=== PATIENT | male | born 1945 | race Caucasian/White ===

== ENCOUNTER 2023-03-19 08:29 | Outpatient (OUT) | payer MEDICARE, OTHER, SELFPAY ==
[2023-03-19 08:49] LABS: Basophils Percent Auto 0.8 % (0.2-2.0); Eosinophils Absolute Auto 0.2 10^3/uL (0.0-0.7); Eosinophils Percent Auto 4.6 % (0.9-7.0); Hematocrit 33.6 % (42.0-54.0); Hemoglobin 11.3 g/dL (14.0-18.0); Immature Granulocytes Abs Auto 0.01 10^3/uL (0.00-0.03); Immature Granulocytes Pct Auto 0.2 % (0.0-0.5); Lymphocytes Absolute Auto 1.1 10^3/uL (1.2-3.8); Lymphocytes Percent Auto 21.2 % (20.5-60.0); Mean Corpuscular HGB Conc 33.6 g/dL (29.9-35.2); Mean Corpuscular Hemoglobin 32.2 pg (25.9-34.0); Mean Corpuscular Volume 95.7 fL (80.0-94.0); Mean Platelet Volume 8.9 fL (9.5-13.5); Monocytes Absolute Auto 0.5 10^3/uL (0.3-0.8); Monocytes Percent Auto 10.3 % (1.7-12.0); Neutrophils Absolute Auto 3.2 10^3/uL (1.4-6.5); Neutrophils Percent Auto 62.9 % (43.0-75.0); Platelet Count 218 10^3/uL (150-450); Red Blood Count 3.51 10^6/uL (4.70-6.10); Red Cell Distribution Width 12.5 % (11.0-15.0); White Blood Count 5.1 10^3/uL (4.0-11.0)
--- NOTE | 2023-03-19 08:59 | CA_ITS ---
[facility] Test Date: 2023-04-10 Pat Name: DANNY HERNANDEZ Department: Room: - Gender: Male Health Information Specialist: : 1945 Requested By: [id number] Order Number: [id number] Reading MD: JEMIMA LEONARD Interpretive Statements Predominant rhythm is sinus with average rate of 59 bpm Tachycardia - max rate of 141 bpm - 25 episodes of PSVT w/ longest duration of 7 beats Bradycardia - min rate of 41 bpm, occurring during applications chemist hours of sleep Ventricular ectopy - 261 total (<1%) - 164 PVC - 42 bigeminy - 55 trigeminy Patient triggered events: none Impression: Predominant rhythm is sinus with average rate of 59 bpm Fastest rate of 141 and slowest rate of 41 bpm 164 PVC, 42 bigeminy and 55 trigeminy No blocks or pauses Electronically Signed On 04-12-2023 10:16:54 EDT by JEMIMA LEONARD
--- NOTE | 2023-03-19 08:59 | CA_ITS ---
Patient: DANNY HERNANDEZ Exam Date: 03/19/2023 : 1945 Gender:M Ordering : [facility] Admission #: [id number] Family : Order #: [id number] CLICK HERE TO VIEW EXAM ECHOCARDIOGRAM REPORT PROCEDURE: CA ECHO DOPPLER COMPLETE INDICATIONS: Syncope COMPARISON: None. DESCRIPTION: COMPLETE ECHOCARDIOGRAM Real-time transthoracic echocardiography with 2D, M-mode, spectral and color flow Doppler performed. QUALITY: Technical quality was good. LEFT VENTRICLE: Normal chamber size. Normal left ventricular wall thickness. Normal systolic function. LV EF: Normal left ventricular ejection fraction, (>55%). DIASTOLIC: Diastolic function is indeterminate. ATRIAL SEPTUM: Visually appears intact. LEFT ATRIUM: Mild dilatation. RIGHT ATRIUM: Mild dilatation. RIGHT VENTRICLE: Mildly dilated. Normal right ventricular systolic function. TRICUSPID VALVE: Normal mobility and thickness. No stenosis with trivial regurgitation. No evidence of pulmonary hypertension. RVSP 34 mmHg MITRAL VALVE: Normal mobility and thickness. No evidence of mitral valve stenosis. Mild mitral annular calcification. No mitral regurgitation. AORTIC VALVE: Normal trileaflet appearance. Mildly calcified aortic valve. Normal leaflet mobility. No evidence of aortic valve stenosis. Mild to moderate aortic regurgitation. AORTIC ROOT: Normal diameter and appearance. PULMONIC VALVE: Normal thickness and mobility. No stenosis. Trivial regurgitation. PERICARDIUM: No evidence of pericardial effusion. IVC: Collapses with inspirations. PLEURA: CONCLUSION: 1. Normal left ventricular systolic function. LVEF is 55 to 60%. 2. Mildly dilated right ventricle with normal systolic function. 3. Mild biatrial dilatation. 4. Mild to moderate aortic regurgitation. 5. Normal right-sided pressures. 6. No pericardial effusion. Adult Echocardiography Procedure Report Left Ventricle LVEDD (3.7 - 5.6 cm): 4.07 cm LVESD (2.2 - 4.0 cm): 2.44 cm LVIVS thickness (0.6 - 1.2 cm): 0.93 cm LVPW thickness (0.5 - 1.0 cm): 0.86 cm e': 0.11 m/s E - e': 7.36 LVOT Max Gradient: 3.20 mm[Hg] LVOT Area (cm2): 0.89 m/s Peak Velocity (LVOT): 0.89 m/s Mean Velocity (LVOT): 0.62 m/s LVOT Diameter 2.34 cm Left Atrium LA Volume Index (2D A2C): 37.37 ml/m2 Left Atrium Systolic Dimension: 2.48 cm Mitral Valve MV E to A Ratio: 1.20 Mitral Valve A-Wave Peak Velocity: 0.69 m/s Mitral Valve E-Wave Peak Velocity: 0.83 m/s Right Ventricle Aorta AO Root Diam: 2.61 cm Aortic Valve AoV Area (Peak Apolinar): 2.86 cm2, 2.86 cm2 AoV Area (VTI): 2.96 cm2, 2.96 cm2 Peak Velocity(Antegrade Flow): 1.34 m/s Peak Gradient(Antegrade Flow): 7.17 mm[Hg] Mean Velocity(Antegrade Flow): 0.84 m/s Mean Gradient(Antegrade Flow): 3.35 mm[Hg] Velocity Time Integral: 36.17 cm Tricuspid Valve Peak Velocity (Regurgitant Flow): 2.78 m/s Pulmonic Valve Mean Gradient: 1.55 mm[Hg] Mean Velocity: 0.58 m/s Peak Velocity: 0.85 m/s, 0.82 m/s Peak Gradient: 2.66 mm[Hg], 2.90 mm[Hg] Right Atrium Right Atrium Systolic Pressure: 51.76 ml, 51.76 ml Dictated by: Richard Olivas M.D. on 03/20/2023 at 17:27 Approved by: Richard Olivas M.D. on 03/20/2023 at 17:32
[2023-03-19 09:52] LABS: Alanine Aminotransferase <6 U/L (16-63); Albumin Level 3.7 g/dL (3.4-5.0); Alkaline Phosphatase 83 U/L (46-116); Anion Gap 12.3; Aspartate Amino Transferase 17 U/L (15-37); BUN Creatinine Ratio 23.5; Bilirubin Total 0.7 mg/dL (0.2-1.0); Calcium 9.3 mg/dL (8.5-10.1); Carbon Dioxide 27.2 mmol/L (21.0-32.0); Chloride 102 mmol/L (98-107); Chol HDL Ratio 2.8; Cholesterol 149 mg/dL (<=200); Estimated GFR (African America >60 (>=60); Estimated GFR (Non-African Ame >60 (>=60); Globulin 3.7 g/dL; Glucose 97 mg/dL (74-106); HDL Cholesterol 54 mg/dL (40-60); LDL Cholesterol Calculated 81.4 mg/dL; Potassium 4.5 mmol/L (3.5-5.1); Sodium 137 mmol/L (136-145); Thyroid Stimulating Hormone 0.586 uIU/mL (0.358-3.740); Total Protein 7.4 g/dL (6.4-8.2); Triglycerides 68 mg/dL (<=150); VLDL CHOLESTEROL 13.6 mg/dL
== END 2023-03-19 08:30 | disposition home or self-care (01) ==
LOC: LAB 08:32
PROVIDERS: PCP Nurse Practitioner Family; Visit Provider Nurse Practitioner Family
DX: I10 Essential (primary) hypertension (principal); Z12.5 Encounter for screening for malignant neoplasm of prostate; R55 Syncope and collapse; I35.1 Nonrheumatic aortic (valve) insufficiency
CPT/HCPCS: 36415; 80053; 80061; 84436; 84443; 84481; 85025; 93242; 93306; G0103

== ENCOUNTER 2025-03-31 08:54 | Outpatient (OUT) | payer MEDICARE, OTHER, SELFPAY ==
--- OUTSIDE RECORDS SUMMARY | 2025-03-31 08:59 | XMS_ITS | Encounter Summary ---
Author Organization [facility] Address [facility]-[id number] [address] [place] [address] Care Team Providers Care General Accounting Clerk Name Role Phone Unavailable Primary Care Provider Unavailabl e Reason for Visit * Reason Comments Med Refill Encounter Details Date Type Department Care Team (Late st Contact Info) Description 04/25/2023 Refill [facility] [address] [address] [phone] Dianna Boucher, WOOD GRAINER-SED MIDDLE SCHOOL TEACHER [address] [facility] [address], [place] [address] Mixed hyperlipidemia; Essential hypertension; Parkinson's disease ([facility]) Social History Tobacco Use Types Packs/Day Years Used Date Smoking Tobacco: Never Smokeless Tobacco: Never Alcohol Use Standard Drinks/Week Comments Yes 0 (1 standard drink = 0.6 oz pur e alcohol) social PHQ-2 Answer Date Recorded Total Score 5 07/16/2021 Childcare Answer Date Recorded Childcare Unknown 03/03/2019 Employment Answer Date Recorded Employment Unknown 03/03/2019 Purpose - Life Answer Date Recorded Purpose and direction in life Unknown Sex and Gender Information Value Date Recorded Sex Assigned at Not on file Legal Sex Male 11:21 AM EDT Gender Identity Not on file Sexual Orientation Not on file documented as of this encounter Plan of Treatment Not on file documented as of this encounter Visit Diagnoses Diagnosis Mixed hyperlipidemia Essential hypertension Unspecified essential hypertension Parkinson's disease ([facility]) documented in this encounter Additional Health Concerns Assessment Noted Time PHQ-9 Depression Total Score: 5 07/16/ 21 10:41 AM EDT documented as of this encounter
--- OUTSIDE RECORDS SUMMARY | 2025-03-31 08:59 | XMS_ITS | Encounter Summary ---
Author Organization [facility] tem Address [id number] [address] [place] [address] Care Team Providers Care Candle Extrusion Machine Operator Name Role Phone Dianna Boucher Primary Care Provi angela Reason for Visit * Reason Onset Date Comments Med Refill 03/07/2021 Encounter Details Date Type Department Care Team (Late st Contact Info) Description 03/07/2021 Refill [facility] [address] [place] [address] [place] [address] Miguel Lopez CMA Mixed hyperlipidemia; Essential hypertension; Parkinson's disease ([facility]) Social History Tobacco Use Types Packs/Day Years Used Date Smoking Tobacco: Never Smokeless Tobacco: Never Alcohol Use Standard Drinks/Week Comments Yes 0 (1 standard drink = 0.6 oz pur e alcohol) social PHQ-2 Answer Date Recorded Total Score 0 07/13/2020 Childcare Answer Date Recorded Childcare Unknown 03/03/2019 Employment Answer Date Recorded Employment Unknown 03/03/2019 Purpose - Life Answer Date Recorded Purpose and direction in life Unknown Sex and Gender Information Value Date Recorded Sex Assigned at Not on file Legal Sex Male 11:21 AM EDT Gender Identity Not on file Sexual Orientation Not on file documented as of this encounter Miscellaneous Notes * Telephone Encounter - HOANG Hernandez - 03/07/2021 2:22 PM EDT This was filled multiple times last week documented in this encounter Plan of Treatment Not on file documented as of this encounter Visit Diagnoses Diagnosis Mixed hyperlipidemia Essential hypertension Unspecified essential hypertension Parkinson's disease (CMS-HCC) documented in this encounter Additional Health Concerns Assessment Noted Time PHQ-9 Depression Total Score: 0 07/13/20 20 10:00 AM EDT documented as of this encounter Care Teams Candle Extrusion Machine Operator Relationship Specialty Start Date End Date Dianna Boucher APRN-CNP [address], [place] [address] PCP - General Family Medicine 12/17/17 04/14/22 documented as of this encounter
--- OUTSIDE RECORDS SUMMARY | 2025-03-31 08:59 | XMS_ITS | Encounter Summary ---
Author Organization [facility] Address [facility]-[id number] [address] [place] [address] Care Team Providers Care Bi Solutions Architect Name Role Phone Dianna Boucher Primary Care Provi angela Reason for Visit * Reason Onset Date Comments Med Refill 03/01/2021 Encounter Details Date Type Department Care Team (Late st Contact Info) Description 03/01/2021 Refill [facility] [address] [place] [address] [place] [address] Enma Frederick CMA Mixed hyperlipidemia; Essential hypertension; Parkinson's disease ([facility]) Social History Tobacco Use Types Packs/Day [...] * Telephone Encounter - HOANG Hernandez - 03/01/2021 10:34 AM EDT Is not appearing on his med list ? * Telephone Encounter - Enma Frederick CMA - 03/01/2021 10:34 AM EDT Julito states he has 8 pills left, when they called the pharmacy for a refill, they said to call pcp,was this medication to be stopped in the past? * Telephone Encounter - HOANG Hernandez - 03/01/2021 10:34 AM EDT Can you check with pt or pharmacy and see if he is still taking this, probably pharmacy please * Telephone Encounter - Miguel Prater CMA - 03/01/2021 10:34 AM EDT Spoke with Danika with [facility] and she said that the medication was discontinued, but theycan't tell by who. * Telephone Encounter - HOANG Hernandez - 03/01/2021 10:34 AM EDT Was dc'd by another provider * Telephone Encounter - Miguel Prater CMA - 03/01/2021 10:34 AM EDT I called sada to inform him, his son answered and said that no one has taken him off of the amlodipine. Would you like me to repend it to you? * Telephone Encounter - HOANG Hernandez - 03/01/2021 10:34 AM EDT Yes please documented in this encounter Plan of Treatment Not on file documented as of this encounter Visit Diagnoses Diagnosis Mixed hyperlipidemia Essential hypertension Unspecified essential hypertension Parkinson's disease (CMS-HCC) documented in this encounter Additional Health Concerns Assessment Noted Time PHQ-9 Depression Total Score: 0 07/13/20 20 10:00 AM EDT documented as of this encounter Care Teams Bi Solutions Architect Relationship Specialty Start Date End Date Dianna Boucher APRN-CNP [address], [place] [address] PCP - General Family Medicine 12/17/17 04/14/22 documented as of this encounter
--- OUTSIDE RECORDS SUMMARY | 2025-03-31 08:59 | XMS_ITS | Clinical Summary ---
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 (CMS-HCC),Restl ess leg syndrome 1 tab tid 90 tablet 1 10/01/2021 Active carbidopa-levod opa (SINEMET CR) 25-100 mg per CR tabletIndicatio ns:Parkinson's disease (CMS-HCC) TAKE 2 TABLETS FIVE TIMES A DAY 900 tablet 3 04/15/2022 Active lisinopriL (PRINIVIL,ZESTR IL) 20 mg tabletIndicatio ns:Mixed hyperlipidemia, Essential hypertension,Pa rkinson's disease ([facility]-H[facility]) TAKE 1 TABLET DAILY 90 tablet 3 04/30/2022 Active amLODIPine (NORVASC) 10 mg tabletIndicatio ns:Mixed hyperlipidemia, Essential hypertension,Pa rkinson's disease ([facility]) TAKE 1 TABLET NIGHTLY 90 tablet 3 02/21/2025 Active Active Problems Patient Care Coordination No te Formatting of this note migh t be different from the original. 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 Unsteady gait 05/26/2018 Bilateral impacted cerumen 04/01/2018 Low vitamin B12 level 04/01/2018 Mixed hyperlipidemia 12/17/2017 Essential hypertension 12/17/2017 Parkinson's disease 12/17/2017 Encounters Date Type Department Care Team Description 02/21/2025 Refill [facility] [address] [place] [address] [place] [address] Lakesha Johnson MD Mixed hyperlipidemia; Essential hypertension; Parkinson's disease ([facility]) from Last 3 Months Immunizations Immunization Administration Dates Next Due COVID-19, mRNA, LNP-S, PF, 100mcg/0.5mL Dose 02/03/2021,01/06/2021 Influenza, Injectable, quadr ivalent (PF) 10/01/2018(Deferred: Patient decision) Pneumococcal Conjugate 13-Valent 10/26/2018 Family History Medical History Relation Name Comments Skin cancer Daughter Prostate cancer Father Hypertension Mother Relation Name Status Comments Daughter Alive Father Mother Social History Tobacco Use Types Packs/Day Years Used Date Smoking Tobacco: Never Smokeless Tobacco: Never Tobacco Cessation:Counseling Given: Yes Alcohol Use Standard Drinks/Week Comments Yes 0 [...] on file Sexual Orientation Not on file Last Filed Vital Signs Vital Sign Reading Time Taken Comments Blood Pressure 120/70 07/16/2021 10:43 AM EDT Pulse 61 07/16/2021 10:43 AM EDT Temperature 36.4 C (97.5 F) 07/16/2021 10:43 AM EDT Respiratory Rate 16 09/12/2020 10:48 AM EST Oxygen Saturation 97% 07/16/2021 10:43 AM EDT Inhaled Oxygen Concentration - - Weight 61.7 kg (136 lb) 07/16/2021 10:43 AM EDT Height 165.1 cm (5' 5 ) 06/06/2021 9:04 AM EDT Body Mass Index 22.63 06/06/2021 9:04 AM EDT Plan of Treatment Health Maintenance Due Date Last Done Comments Depression Screening 1957 Tobacco Screening 1957 DTaP,Tdap and Td Vaccines (1 - Tdap) 1965 Zoster (Shingles) Vaccine (1 of 2) 1996 Fall Risk Screening 2011 COVID-19 Vaccine (3 - season) 2024, 01/06/2021 Influenza Vaccine 05/23/2025 Medical Devices Not on file Insurance MEDICAL TI[employer] MEDICARE
--- OUTSIDE RECORDS SUMMARY | 2025-03-31 08:59 | XMS_ITS | Encounter Summary ---
Author Organization [facility] Address [facility]-[id number] [address] [place] [address] Care Team Providers Care Rn Clinical Research Name Role Phone Dianna Boucher FOUNDRY FINISHER-WIRE PREPARATION MACHINE TENDER Primary Care Provi angela Reason for Visit * Reason Comments Med Refill Encounter Details Date Type Department Care Team (Late st Contact Info) Description 02/07/2020 Refill [facility] [address] [place] [address] [place] [phone] Dianna Boucher, [facility] [address] [place] [address] B, [place] [address] Mixed hyperlipidemia; Essential hypertension; Parkinson's disease ([facility]) Social History Tobacco Use Types Packs/Day Years Used Date Smoking Tobacco: Never Smokeless Tobacco: Never Alcohol Use Standard Drinks/Week Comments Yes 0 (1 standard drink = 0.6 oz pur e alcohol) PHQ-2 Answer Date Recorded PHQ-2 Score 0 04/14/2019 Childcare Answer Date Recorded Childcare Unknown 03/03/2019 Employment Answer Date Recorded Employment Unknown 03/03/2019 Sex and Gender Information Value Date Recorded Sex Assigned at Not on file Legal Sex Male 11:21 AM EDT Gender Identity Not on file Sexual Orientation Not on file documented as of this encounter Plan of Treatment Not on file documented as of this encounter Visit Diagnoses Diagnosis Mixed hyperlipidemia Essential hypertension Unspecified essential hypertension Parkinson's disease ([facility]) documented in this encounter Additional Health Concerns Assessment Noted Time PHQ-9 Depression Total Score: 0 10/25/19 20 10:00 AM EST documented as of this encounter Care Teams Rn Clinical Research Relationship Specialty Start Date End Date Dianna Boucher, CORDELL-WIRE PREPARATION MACHINE TENDER [address], [place] [address] PCP - General Family Medicine 12/17/17 04/14/22 documented as of this encounter
--- OUTSIDE RECORDS SUMMARY | 2025-03-31 08:59 | XMS_ITS | Encounter Summary ---
Author Organization [facility] [employer] [facility] Address [facility]-[id number] [address] [place] [address] Care Team Providers Care Salvage Determiner Name Role Phone Dianna Boucher SUPERVISOR BLOOMING MILL-WELFARE DIRECTOR Primary Care Provi angela Reason for Visit * Reason Comments Med Refill Encounter Details Date Type Department Care Team (Late st Contact Info) Description 02/03/2021 Refill [facility] [address] [place] [address] [place] [address] Dianna Boucher, SUPERVISOR BLOOMING [facility] [address] [place] [address] B, [place] [address] Mixed hyperlipidemia; Essential hypertension; Parkinson's disease ([facility]) Social History Tobacco Use Types Packs/Day [...] Essential hypertension Unspecified essential hypertension Parkinson's disease ([facility]) documented in this encounter Additional Health Concerns Assessment Noted Time PHQ-9 Depression Total Score: 0 07/13/20 20 10:00 AM EDT documented as of this encounter Care Teams Salvage Determiner Relationship Specialty Start Date End Date Dianna Boucher APRN-WELFARE DIRECTOR [address], [place] [address] PCP - General Family Medicine 12/17/17 04/14/22 documented as of this encounter
--- OUTSIDE RECORDS SUMMARY | 2025-03-31 08:59 | XMS_ITS | Clinical Summary ---
Author Organization [facility] Address [address] [place] [address] Care Team Providers Care Rhythmic Gymnastics Coach Name Role Phone Beulah Hilario SULEIMAN Primary Care Provider [phone] Allergies No known active allergies Medications carbidopa-levod opa (Sinemet CR) 25-100 mg ER tablet TAKE 3 TABLETS BY MOUTH FOUR TIMES DAILY FOR 14 DAYS 05/01/2023 Active mirtazapine (Remeron) 15 mg tablet 04/30/2023 Active amLODIPine (Norvasc) 10 mg tablet Take 1 tablet by mouth at bedtime. 03/04/2023 Active lisinopril 20 mg tablet Take 1 tablet by mouth in the morning. 04/30/2022 Active pramipexole (Mirapex) 0.5 mg tablet Take 0.5 mg by mouth in the morning, afternoon, and at bedtime. 04/18/2023 Active tiZANidine (Zanaflex) 4 mg tablet TAKE 1 TABLET BY MOUTH FIVE TIMES DAILY NEEDED 04/18/2023 Active Active Problems Problem Noted Date Diagnosed Date Paroxysmal supraventricular tachycardia 05/29/20 23 Assessment & Plan (05/29/2023 3:43 PM EDT): -psvt seen on monitor -likely unrelated to syncope -will do 30d event monitor -LA/RA mildly dilated on echo -baseline HR 60, will hold off on medication as he is asymptomatic Skin lesion of right arm 09/12/2020 023 REM sleep behavior disorder 07/06/201904/23 Weight loss 04/14/2019 05/19/2023 Medicare annual wellness visit, subsequent 08/2705/19/2023 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 05/19/2023 Restless leg syndrome 05/26/2018 05/19/2023 Unsteady gait 05/26/2018 05/19/2023 Bilateral impacted cerumen 04/01/201805/19 Low vitamin B12 level 04/01/2018 05/19/2023 Essential hypertension 12/17/2017 Assessment & Plan (05/29/2023 3:42 PM EDT): -stable, ct medications Mixed hyperlipidemia 12/17/2017 05/19/2023 Parkinson's disease 12/17/2017 05/19/2023 Assessment & Plan (05/29/2023 3:42 PM EDT): -could be contributing to syncopal episodes -follows neurology Family History Medical History Relation Name Comments Hypertension Brother Hypertension Father Hypertension Mother Hypertension Sister Relation Name Status Comments Brother Father Mother Sister Social History Tobacco Use Types Packs/Day Years Used Date Smoking Tobacco: Never Smokeless Tobacco: Never Alcohol Use Standard Drinks/Week Comments Yes 14 (1 standard drink = 0.6 oz pu re alcohol) 2 beers daily [place] Safety [facility] Environment Answer Date Rec orded Fear of Current or Ex-Partner Not on file Emotionally Abused Not on file 11/14/2023 Physically Abused Not on file 11/14/2023 Sexually Abused Not on file 11/14/2023 Physically or Sexually Abused Not on file Sex and Gender Information Value Date Recorded Sex Assigned at Not on file Legal Sex Male 1:29 PM EDT Gender Identity Not on file Sexual Orientation Not on file Last Filed Vital Signs Vital Sign Reading Time Taken Comments Blood Pressure 108/68 07/15/2023 11:53 AM EDT Pulse 62 07/15/2023 11:53 AM EDT Temperature - - Respiratory Rate - - Oxygen Saturation 97% 07/15/2023 11:53 AM EDT Inhaled Oxygen Concentration - - Weight 58.5 kg (129 lb) 07/15/2023 11:53 AM EDT Height 167.6 cm (5' 6 ) 07/15/2023 11:53 AM EDT Body Mass Index 20.82 07/15/2023 11:53 AM EDT Plan of Treatment Health Maintenance Due Date Last Done Comments Medicare Annual Wellness (AWV) 1945 Depression Screening 1957 Adult Tetanus 1968 Zoster Vaccines (1 of 2) 1996 Fall Risk Screening 2011 Pneumococcal Vaccine: 50+ Ye ars (2 of 2 - PCV20 or PCV21) 10/26/2019 10/26/2018 COVID-19 Vaccine (1 - 2023-2 5 season) 2024 Influenza Vaccine (#1) 2025 HIB Vaccines Aged Out No longer eligi ble based on patient's age to complete this topic HPV Vaccines Aged Out No longer eligi ble based on patient's age to complete this topic IPV Vaccines Aged Out No longer eligi ble based on patient's age to complete this topic Meningococcal B Vaccine Aged Out No l onger eligible based on patient's age to complete this topic Meningococcal Vaccine Aged Out No ross luís eligible based on patient's age to complete this topic Rotavirus Vaccines Aged Out No longer eligible based on patient's age to complete this topic Insurance [employer] Care Teams Rhythmic Gymnastics Coach Relationship Specialty Start Date End Date Beulah Hilario CNP [facility], [facility] [address] [place] [phone] PCP - General Family Medicine 05/16/23
--- OUTSIDE RECORDS SUMMARY | 2025-03-31 08:59 | XMS_ITS | Encounter Summary ---
Author Organization [facility] [employer] [facility] Address [facility]-[id number] [address] [place] [address] Care Team Providers Care Valve Fitter Name Role Phone Dianna Boucher SALES PROCESS MANAGER-PERSONAL COMPANION Primary Care Provi angela Reason for Visit * Reason Comments Med Refill Encounter Details Date Type Department Care Team (Late st Contact Info) Description 07/08/2019 Refill [facility] [address] [place] [address] [place] [phone] Dianna Boucher, [facility] [address] [place] [address] B, [place] [address] Mixed hyperlipidemia; Essential hypertension; Parkinson's disease ([facility]) Social History Tobacco Use Types Packs/Day Years [...] Essential hypertension Unspecified essential hypertension Parkinson's disease ([facility]) documented in this encounter Additional Health Concerns Assessment Noted Time PHQ-9 Depression Total Score: 0 04/14/20 19 11:00 AM EDT documented as of this encounter Care Teams Valve Fitter Relationship Specialty Start Date End Date Dianna Boucher, CORDELL-PERSONAL COMPANION [address], [place] [address] PCP - General Family Medicine 12/17/17 04/14/22 documented as of this encounter
--- OUTSIDE RECORDS SUMMARY | 2025-03-31 08:59 | XMS_ITS | Clinical Summary ---
Author Organization [facility] Address [address] [place] [address] Care Team Providers Care Reset Merchandiser Name Role Phone Beulah Hilario MD Unavailable [phone] Bijal Haley DO Unavailable [phone] Yoselyn Wiley NP Unavailable [phone] Allergies No known active allergies Medications tiZANidine (Zanaflex) 4 MG tablet Take 4 mg by mouth 5 (five) times a day Active amLODIPine (Norvasc) 10 MG tablet Take 10 mg by mouth Daily Active lisinopril 20 MG tablet Take 20 mg by mouth Daily Active mirtazapine (Remeron) 15 MG tabletIndications:T remor TAKE 1 TABLET BY MOUTH AT BEDTIME 30 tablet 1 5 Active carbidopa-levodopa CR (Sinemet CR) 25-100 MG ER tabletIndications:P arkinson's disease, unspecified whether dyskinesia present, unspecified whether manifestations fluctuate (HCC) TAKE 3 TABLETS BY MOUTH FOUR TIMES DAILY 360 tablet 1 5 Active pramipexole (Mirapex) 0.5 MG tabletIndications:T remor TAKE 1 TABLET BY MOUTH THREE TIMES DAILY 90 tablet 1 5 Active Active Problems Problem Noted Date Diagnosed Date Debility 04/29/2024 Neck pain 04/29/2024 Weakness 04/29/2024 Tremor 04/29/2024 Dystonia 03/24/2024 Parkinson disease 03/24/2024 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 Encounters Date Type Department Care Team Description 02/03/2025 Refill [facility] [address] [phone] Bijal Haley Parkinson's disease, unspecified whether dyskinesia present, unspecified whether manifestations fluctuate (HCC); Tremor 01/07/2025 Refill [facility] [address] [phone] Bijal Haley DO Tremor 01/04/2025 Refill [facility]ALLUSKY [address] [address] Bijal Haley DO Tremor from Last 3 Months Immunizations Immunization Administration Dates Next Due Pneumococcal Conjugate PCV 13 02/07/2022 Family History Medical History Relation Name Comments Cancer Father Hypertension Father Hypertension Mother Migraines Paternal Grandfather Hypertension Sibling Relation Name Status Comments Father Mother Paternal Grandfather Sibling Social History Tobacco Use Types Packs/Day Years Used Date Smoking Tobacco: Never Tobacco Cessation:Counseling Given: Not Answered Alcohol Use Standard Drinks/Week Comments Yes 4 (1 standard drink = 0.6 oz pur e alcohol) caffeine: 1-2 cups per day AUDIT-C Answer Date Recorded Q1: How often do you have a drink containing alcohol? 4 or more times a week 03/24/2024 Q2: How many drinks containi ng alcohol do you have on a typical day when you are drinking? 3 or 4 Q3: How often do you have si x or more drinks on one occasion? Monthly 03/24/2024 Sex and Gender Information Value Date Recorded Sex Assigned at Not on file Legal Sex Male 4:21 PM EDT Gender Identity Not on file Sexual Orientation Not on file Last Filed Vital Signs Vital Sign Reading Time Taken Comments Blood Pressure 112/66 10/05/2024 8:25 AM EST Pulse 78 10/05/2024 8:25 AM EST Temperature - - Respiratory Rate 16 04/29/2024 10:07 AM EDT Oxygen Saturation 95% 10/05/2024 8:25 AM EST Inhaled Oxygen Concentration - - Weight 62.3 kg (137 lb 6.4 oz) 10/05/2024 8:25 A M EST Height 167.6 cm (5' 6 ) 10/05/2024 8:25 AM EST Body Mass Index 22.18 10/05/2024 8:25 AM EST Plan of Treatment Health Maintenance Due Date Last Done Comments Pneumococcal Vaccine: 65+ Ye ars (2 of 2 - PPSV23) 02/07/2023 02/07/2022, 10/26/2018 Influenza Vaccine (#1) 2025 Insurance [employer]ICARE [employer] Care Teams Reset Merchandiser Relationship Specialty Start Date End Date Beulah Hilario MD [address] [place] [address] Referring Physician Family Medicine 04/29/24 Bijal Haley DO [address] [id number] Referring Physician Neurology 10/05/24 Yoselyn Wiley NP [address] [id number] Nurse Practitioner Neurology 10/05/24
--- OUTSIDE RECORDS SUMMARY | 2025-03-31 08:59 | XMS_ITS | Encounter Summary ---
Author Organization [facility] Sys tem Address [place]-[id number] [address] [place] [address] Care Team Providers Care Pottery Striper Name Role Phone Dianna Boucher APRN-MECHANICAL SYSTEMS DESIGN ENGINEER Primary Care Provi angela Encounter Details Date Type Department Care Team (Late st Contact Info) Description [facility] [address] [place] [phone] Jane Virgen Social History Tobacco Use Types Packs/Day Years [...] documented as of this encounter Visit Diagnoses Not on filedocumented in this encounter Additional Health Concerns Assessment Noted Time PHQ-9 Depression Total Score: 0 07/13/20 20 10:00 AM EDT documented as of this encounter Care Teams Pottery Striper Relationship Specialty Start Date End Date Dianna Boucher, HOANG [address], [place] [address] PCP - General Family Medicine 12/17/17 04/14/22 documented as of this encounter
--- OUTSIDE RECORDS SUMMARY | 2025-03-31 08:59 | XMS_ITS | Encounter Summary ---
Author Organization [facility] [employer] [facility] tem Address [facility]-[id number] [address] [place] [address] Care Team Providers Care Paper And Prints Restorer Name Role Phone Dianna Boucher CORRECTIONAL MAINTENANCE TECHNICIAN-SUPPORT ASSISTANT Primary Care Provi angela Encounter Details Date Type Department Care Team (Late st Contact Info) Description 08/28/2020 [facility] [address] [place] [phone] Debra Cooper Social History Tobacco Use Types Packs/Day Years Used Date Smoking Tobacco: Never Smokeless Tobacco: Never Alcohol Use Standard Drinks/Week Comments Yes 0 (1 standard drink = 0.6 oz pur e alcohol) PHQ-2 Answer Date Recorded Total Score 0 07/13/2020 Childcare Answer Date Recorded Childcare Unknown 03/03/2019 Employment Answer Date Recorded Employment Unknown 03/03/2019 Sex and Gender Information Value Date Recorded Sex Assigned at Not on file Legal Sex Male 11:21 AM EDT Gender Identity Not on file Sexual Orientation Not on file COVID-19 Exposure Response Date Recorded In the last month, have you been in contact with someone who was confirmed or suspected to have Coronavirus / COVID-19? No / Unsure 08/30/2020 11:20 AM EST documented as of this encounter Miscellaneous Notes * Telephone Encounter - Debra Cooper - 08/28/2020 2:45 PM EST Julito(son) left a voicemail stating he needs to speak to the patients case work regarding FMLA documentation. Please advise Contact- Julito(Son)-[phone] Debra Cooper 08/28/20 1446 * Telephone Encounter - Debra Cooper - 08/28/2020 2:45 PM EST Patients geetha Vila called again requesting a call back with questions regarding FMLA. Please advise Contact- [phone] Debra Cooper 08/29/20 1548 * Telephone Encounter - Meghan Jacobsen RN - 08/28/2020 2:45 PM EST Closing this encounter as there is a second encounter regarding the same thing. Meghan Jacobsen RN 08/30/20 1034 documented in this encounter Plan of Treatment Not on file documented as of this encounter Visit Diagnoses Not on filedocumented in this encounter Additional Health Concerns Assessment Noted Time PHQ-9 Depression Total Score: 0 07/13/20 20 10:00 AM EDT documented as of this encounter Care Teams Paper And Prints Restorer Relationship Specialty Start Date End Date Dianna Boucher APRN-SULEIMAN [address], [place] [address] PCP - General Family Medicine 12/17/17 04/14/22 documented as of this encounter
--- OUTSIDE RECORDS SUMMARY | 2025-03-31 08:59 | XMS_ITS | Encounter Summary ---
Author Organization [facility] [employer] Sys tem Address [facility]-[id number] [address] [place] [address] Care Team Providers Care Stable Hand Name Role Phone Dianna Boucher ELECTRICAL EXPERIMENTAL MECHANIC-GRINDING WHEEL OPERATOR Primary Care Provi angela Reason for Visit * Reason Comments Med Refill Encounter Details Date Type Department Care Team (Late st Contact Info) Description 09/02/2019 Refill [facility] [address] [place] [address] [place] [phone] Dianna Boucher, ELECTRICAL EXPERIMENTAL ME[facility] [address] [place] [address] B, [place] [address] Social History Tobacco Use Types Packs/Day Years [...] documented as of this encounter Care Teams Stable Hand Relationship Specialty Start Date End Date Dianna Boucher, ELECTRICAL EXPERIMENTAL MECHANIC-GRINDING WHEEL OPERATOR [address], [place] [address] PCP - General Family Medicine 12/17/17 04/14/22 documented as of this encounter
--- OUTSIDE RECORDS SUMMARY | 2025-03-31 08:59 | XMS_ITS | Encounter Summary ---
Author Organization [facility] [employer] [facility] tem Address [facility]-[id number] [address] [place] [address] Care Team Providers Care Field Ironworker Name Role Phone SanderDianna mendoza PRESCHOOL TEACHER-FERTILIZER MIXER Primary Care Provi angela Encounter Details Date Type Department Care Team (Late st Contact Info) Description 10/01/2021 [facility] [address] [place] [address] [place] [address] Niki Zavala CMA Social History Tobacco Use Types Packs/Day Years [...] encounter Miscellaneous Notes * Telephone Encounter - Niki Zavala CMA - 10/01/2021 11:02 AM EST ZANAFLEX (TIZANIDINEHCL) 4MG 3X DAILY BUT THEY TAKING AN ADDITIONAL 1/2 A PILL BEFORE BED PRN. NEEDS REFILLED NOT FINDING IT ON THE CURRENT MED LIST. RX IN 12-22-17 PLEASE ADVISE. documented in this encounter Plan of Treatment Not on file documented as of this encounter Visit Diagnoses Not on filedocumented in this encounter Additional Health Concerns Assessment Noted Time PHQ-9 Depression Total Score: 5 07/16/20 21 10:41 AM EDT documented as of this encounter Care Teams Field Ironworker Relationship Specialty Start Date End Date Dianna Boucher, PRESCHOOL TEACHER-FERTILIZER MIXER [address], [place] [address] PCP - General Family Medicine 12/17/17 04/14/22 documented as of this encounter
--- OUTSIDE RECORDS SUMMARY | 2025-03-31 08:59 | XMS_ITS | Encounter Summary ---
Author Organization [facility] [employer] [facility] Address [id number] [address] [place] [address] Care Team Providers Care Receptionist Name Role Phone Dianna Boucher SAFETY PIN ASSEMBLING MACHINE OPERATOR-PLANNER SCHEDULER Primary Care Provi angela Reason for Visit * Reason Onset Date Comments Med Refill 12/28/2018 Encounter Details Date Type Department Care Team (Late st Contact Info) Description 12/28/2018 Refill [facility] [address] [place] [phone] Mars Henson CMA Mixed hyperlipidemia; Essential hypertension; Parkinson's disease (CMS-HCC) Social History Tobacco Use Types Packs/Day Years Used Date Smoking Tobacco: Never Smokeless Tobacco: Never Alcohol Use Standard Drinks/Week Comments Yes 0 (1 standard drink = 0.6 oz pur e alcohol) PHQ-2 Answer Date Recorded PHQ-2 Score 2 10/26/2018 Childcare Answer Date Recorded Childcare Unknown 12/15/2018 Employment Answer Date Recorded Employment Unknown 12/15/2018 Sex and Gender Information Value Date Recorded [...] Assessment Noted Time PHQ-9 Depression Total Score: 2 10/26/19 19 11:00 AM EST documented as of this encounter Care Teams Receptionist Relationship Specialty Start Date End Date Dianna Boucher, SAFETY PIN ASSEMBLING MACHINE OPERATOR-PLANNER SCHEDULER [address], [place] [address] PCP - General Family Medicine 12/17/17 04/14/22 documented as of this encounter
--- OUTSIDE RECORDS SUMMARY | 2025-03-31 08:59 | XMS_ITS | Encounter Summary ---
Author Organization [facility] [employer] [facility] Address [facility][id number] [address] [place] [address] Care Team Providers Care Financial Dealers Name Role Phone Dianna Boucher CORE MAN-TEACHER SPECIALIST Primary Care Provi angela Reason for Visit * Reason Onset Date Comments Med Refill 10/02/2021 Encounter Details Date Type Department Care Team (Late st Contact Info) Description 10/02/2021 Refill [facility] [address] [place] [address] [place] [address] Madina Fisher CMA Social History Tobacco Use Types Packs/Day [...] documented as of this encounter Care Teams Financial Dealers Relationship Specialty Start Date End Date Dianna Boucher, CORE MAN-TEACHER SPECIALIST [address], [place] [address] PCP - General Family Medicine 12/17/17 04/14/22 documented as of this encounter
--- OUTSIDE RECORDS SUMMARY | 2025-03-31 08:59 | XMS_ITS | Encounter Summary ---
Author Organization [facility] [employer] Sys tem Address [facility]-[id number] [address] [place] [address] Care Team Providers Care Senior Advisor Name Role Phone Dianna Boucher FINANCIAL ANALYSIS ADVISOR-FRAUD MANAGER Primary Care Provi angela Reason for Visit * Reason Comments Med Refill Encounter Details Date Type Department Care Team (Late st Contact Info) Description 08/01/2020 Refill [facility] [address] [place] [address] [place] [phone] Dianna Boucher, [facility] [address] [place] [address] B, [place] [address] Social History Tobacco Use Types [...] have Coronavirus / COVID-19? No / Unsure 07/13/2020 10:18 AM EDT documented as of this encounter Miscellaneous Notes * Telephone Encounter - HOANG Hernandez - 08/01/2020 1:28 AM EST See if he is still taking this, states was dc by dr gates * Telephone Encounter - Delmar Giraldo CMA - 08/01/2020 1:28 AM EST Left vm, await call back * Telephone Encounter - Delmar Giraldo CMA - 08/01/2020 1:28 AM EST Not taking documented in this encounter Plan of Treatment Not on file documented as of this encounter Visit Diagnoses Not on filedocumented in this encounter Additional Health Concerns Assessment Noted Time PHQ-9 Depression Total Score: 0 07/13/20 20 10:00 AM EDT documented as of this encounter Care Teams Senior Advisor Relationship Specialty Start Date End Date Dianna Boucher APRN-CNP [address], [place] [address] PCP - General Family Medicine 12/17/17 04/14/22 documented as of this encounter
--- OUTSIDE RECORDS SUMMARY | 2025-03-31 08:59 | XMS_ITS | Encounter Summary ---
Author Organization [facility] [employer] Sys tem Address [facility][id number] [address] [place] [address] Care Team Providers Care Acreage Reporter Name Role Phone Dianna Boucher PUMP AND BLOWER OPERATOR-TIEDOWN OPERATOR Primary Care Provi angela Reason for Visit * Reason Comments Med Refill Encounter Details Date Type Department Care Team (Late st Contact Info) Description 02/03/2020 Refill [facility] [address] [place] [address] [place] [phone] Dianna Boucher, PUMP AND BLOWER [facility] [address] [place] [address] B, [place] [address] Social History Tobacco Use Types [...] have Coronavirus / COVID-19? No / Unsure 01/05/2020 3:00 PM EDT documented as of this encounter Plan of Treatment Not on file documented as of this encounter Visit Diagnoses Not on filedocumented in this encounter Additional Health Concerns Assessment Noted Time PHQ-9 Depression Total Score: 0 10/25/19 20 10:00 AM EST documented as of this encounter Care Teams Acreage Reporter Relationship Specialty Start Date End Date Dianna Boucher APRN-SULEIMAN [address], [place] [address] PCP - General Family Medicine 12/17/17 04/14/22 documented as of this encounter
[2025-03-31 09:58] LABS: Hematocrit 33.0 % (42.0-54.0); Hemoglobin 11.2 g/dL (14.0-18.0); Immature Granulocytes Abs Auto 0.02 10^3/uL (0.00-0.03); Immature Granulocytes Pct Auto 0.3 % (0.0-0.5); Lymphocytes Absolute Auto 0.8 10^3/uL (1.2-3.8); Mean Corpuscular HGB Conc 33.9 g/dL (29.9-35.2); Mean Corpuscular Hemoglobin 31.7 pg (25.9-34.0); Mean Corpuscular Volume 93.5 fL (80.0-94.0); Platelet Count 230 10^3/uL (150-450); Red Blood Count 3.53 10^6/uL (4.70-6.10); White Blood Count 5.8 10^3/uL (4.0-11.0)
[2025-03-31 10:28] LABS: Alanine Aminotransferase <6 U/L (16-63); Albumin Globulin Ratio 1.1; Albumin Level 3.6 g/dL (3.4-5.0); Alkaline Phosphatase 76 U/L (46-116); Anion Gap 14.5; Aspartate Amino Transferase 16 U/L (15-37); Blood Urea Nitrogen 22.0 mg/dL (7.0-18.0); Calcium 9.0 mg/dL (8.5-10.1); Carbon Dioxide 25.9 mmol/L (21.0-32.0); Chloride 103 mmol/L (98-107); Cholesterol 126 mg/dL (<=200); Estimated GFR (African America >60 (>=60 mL/min/1.73m^2); Estimated GFR (Non-African Ame >60 (>=60 mL/min/1.73m^2); Free T3 2.80 pg/mL (2.18-3.98); Globulin 3.4 g/dL; Glucose 95 mg/dL (74-106); HDL Cholesterol 56 mg/dL (40-60); Potassium 4.4 mmol/L (3.5-5.1); Sodium 139 mmol/L (136-145); Thyroid Stimulating Hormone 0.455 uIU/mL (0.358-3.740); Total Protein 7.0 g/dL (6.4-8.2); Triglycerides 48 mg/dL (<=150); Uric Acid 6.3 mg/dL (3.5-7.2); VLDL CHOLESTEROL 9.6 mg/dL
== END 2025-03-31 08:55 | disposition home or self-care (01) ==
LOC: LAB 08:57
PROVIDERS: PCP Nurse Practitioner Family; Visit Provider Nurse Practitioner Family
DX: E78.5 Hyperlipidemia, unspecified (principal); R73.09 Other abnormal glucose; M10.9 Gout, unspecified; E03.9 Hypothyroidism, unspecified; I10 Essential (primary) hypertension; Z12.5 Encounter for screening for malignant neoplasm of prostate; R53.83 Other fatigue
CPT/HCPCS: 36415; 80053; 80061; 83036; 83525; 84436; 84443; 84481; 84550; 85025; G0103

== ENCOUNTER 2025-06-14 13:33 | Outpatient (OUT) | payer MEDICARE, OTHER, SELFPAY ==
--- OUTSIDE RECORDS SUMMARY | 2025-06-14 13:37 | XMS_ITS | Clinical Summary ---
Author Organization [employer] [facility] Address [facility]-[id number] [address] [place] [address] Care Team Providers Care Price Accuracy Supervisor Name Role Phone Unavailable Primary Care Provider [...] tabletIndicatio ns:Mixed hyperlipidemia, Essential hypertension,Pa rkinson's disease ([facility]-HCC) TAKE 1 TABLET DAILY 90 tablet 3 04/30/2022 Active amLODIPine (NORVASC) 10 mg tabletIndicatio ns:Mixed hyperlipidemia, Essential hypertension,Pa rkinson's disease ([facility]-HCC) TAKE 1 TABLET NIGHTLY 90 tablet 3 [...] 12/17/2017 Essential hypertension 12/17/2017 Parkinson's disease 12/17/2017 Immunizations Immunization Administration Dates Next Due COVID-19, [...] Screening 2011 COVID-19 Vaccine (3 - season) 2025, 01/06/2021 Influenza Vaccine 05/23/2025 Medical Devices Not on file Insurance [employer]ICARE
--- OUTSIDE RECORDS SUMMARY | 2025-06-14 13:37 | XMS_ITS | Encounter Summary ---
Author Organization [facility] [employer] Sys tem Address [facility][id number] [address] [place] [address] Care Team Providers Care Associate Professor Of Chemistry Name Role Phone Dianna Boucher BATTER MIXER HELPER-SOLO TRUCK DRIVER Primary Care Provi angela Reason for Visit * Reason Comments Med Refill Encounter Details Date Type Department Care Team (Late st Contact Info) Description 02/03/2020 Refill [facility] [address] [place] [address] [place] [phone] Dianna Boucher, BATTER MIXER [facility]BA[facility]STATE [facility] [address] [place] [address] B, [place] [address] Social History Tobacco Use Types [...] documented as of this encounter Care Teams Associate Professor Of Chemistry Relationship Specialty Start Date End Date Dianna Boucher APRN-SULEIMAN [address], [place] [address] PCP - General Family Medicine 12/17/17 04/14/22 documented as of this encounter
--- OUTSIDE RECORDS SUMMARY | 2025-06-14 13:37 | XMS_ITS | Encounter Summary ---
Author Organization [facility] [employer] [facility] Address [facility] [place]-[id number] [address] [place] [address] Care Team Providers Care Middle Stitcher Name Role Phone Dianna Boucher TRANSFORMER ASSEMBLER-RESERVOIR ENGINEER Primary Care Provi angela Reason for Visit * Reason Comments Med Refill Encounter Details Date Type Department Care Team (Late st Contact Info) Description 07/08/2019 Refill [facility] [address] [place] [address] [place] [phone] Dianna Boucher, [facility] [address] [place] [address] B, [place] [address] Mixed hyperlipidemia; Essential hypertension; Parkinson's disease ([facility]-H[facility]) Social History Tobacco Use Types Packs/Day [...] Essential hypertension Unspecified essential hypertension Parkinson's disease ([facility]) documented in this encounter Additional Health Concerns Assessment Noted Time PHQ-9 Depression Total Score: 0 04/14/20 19 11:00 AM EDT documented as of this encounter Care Teams Middle Stitcher Relationship Specialty Start Date End Date Dianna Boucher, CORDELL-RESERVOIR ENGINEER [address], [place] [address] PCP - General Family Medicine 12/17/17 04/14/22 documented as of this encounter
--- OUTSIDE RECORDS SUMMARY | 2025-06-14 13:37 | XMS_ITS | Encounter Summary ---
Author Organization [facility] [employer] [facility] Address [facility]-[id number] [address] [place] [address] Care Team Providers Care Admissions Representative Name Role Phone Dianna Boucher BIBLIOGRAPHIC SERVICES SPECIALIST-MICROCOMPUTER TECHNICIAN Primary Care Provi angela Reason for Visit * Reason Comments Med Refill Encounter Details Date Type Department Care Team (Late st Contact Info) Description 02/03/2021 Refill [facility] [address] [place] [address] [place] [address] Dianna Boucher, BIBLIOGRAPHIC SERVICES SPECIALISTMETROPOL[facility] [address] [place] [address] B, [place] [address] Mixed hyperlipidemia; Essential hypertension; Parkinson's disease ([facility]) Social History Tobacco Use Types Packs/Day Years [...] Essential hypertension Unspecified essential hypertension Parkinson's disease ([facility]) documented in this encounter Additional Health Concerns Assessment Noted Time PHQ-9 Depression Total Score: 0 07/13/20 20 10:00 AM EDT documented as of this encounter Care Teams Admissions Representative Relationship Specialty Start Date End Date Dianna Boucher APRN-MICROCOMPUTER TECHNICIAN [address], [place] [address] PCP - General Family Medicine 12/17/17 04/14/22 documented as of this encounter
--- OUTSIDE RECORDS SUMMARY | 2025-06-14 13:37 | XMS_ITS | Clinical Summary ---
Author Organization [facility] Address [address] [place] [address] Care Team Providers Care Kitman Name Role Phone Beulah Hilario MD Unavailable [phone] Bijal Haley DO Unavailable [phone] Yoselyn Wiley NP Unavailable [phone] Allergies No known active allergies Medications [...] 03/24/2024 Parkinson disease 03/24/2024 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 Immunizations Immunization Administration Dates Next Due Pneumococcal [...] Influenza Vaccine (#1) 2025 Insurance [employer]ICARE [employer] Care Teams Kitman Relationship Specialty Start Date End Date Beulah Hilario MD [address] [place] [address] Referring Physician Family Medicine 04/29/24 Bijal Haley DO [address] [place] [address] Referring Physician Neurology 10/05/24 Yoselyn Wiley NP [address] [place] [address] Nurse Practitioner Neurology 10/05/24
--- OUTSIDE RECORDS SUMMARY | 2025-06-14 13:37 | XMS_ITS | Encounter Summary ---
Author Organization [facility] [employer] [facility] Address [facility]-[id number] [address] [place] [address] Care Team Providers Care Primary School Teacher Librarian Name Role Phone Dianna Boucher SAXOPHONE TEACHER-DOORMAKER Primary Care Provi angela Reason for Visit * Reason Onset Date Comments Med Refill 10/02/2021 Encounter Details Date Type Department Care Team (Late st Contact Info) Description 10/02/2021 Refill [facility] [address] [place] [address] [place] [address] Madina Fisher CMA Social History [...] documented as of this encounter Care Teams Primary School Teacher Librarian Relationship Specialty Start Date End Date Dianna Boucher, SAXOPHONE TEACHER-DOORMAKER [address], [place] [address] PCP - General Family Medicine 12/17/17 04/14/22 documented as of this encounter
--- OUTSIDE RECORDS SUMMARY | 2025-06-14 13:37 | XMS_ITS | Encounter Summary ---
Author Organization [facility] [employer] Sys tem Address [facility] [place] [place]-[id number] [address] [place] [address] Care Team Providers Care Vending Enterprises Supervisor Name Role Phone Dianna Boucher Primary Care Provi angela Reason for Visit * Reason Onset Date Comments Med Refill 03/01/2021 Encounter Details Date Type Department Care Team (Late st Contact Info) Description 03/01/2021 Refill [facility] [address] [place] [address] [place] [address] Enma Frederick CMA Mixed hyperlipidemia; Essential hypertension; Parkinson's disease ([facility]) Social History Tobacco Use Types Packs/Day Years [...] documented as of this encounter Care Teams Vending Enterprises Supervisor Relationship Specialty Start Date End Date Dianna Boucher APRN-CNP [address], [place] [address] PCP - General Family Medicine 12/17/17 04/14/22 documented as of this encounter
--- OUTSIDE RECORDS SUMMARY | 2025-06-14 13:37 | XMS_ITS | Encounter Summary ---
Author Organization [facility] tem Address [facility] [id number] [address] [place] [address] Care Team Providers Care Public Relations Senior Associate Name Role Phone Dianna Boucher DIRECTOR OF TAX SERVICES-MEN'S BASKETBALL COACH Primary Care Provi angela Encounter Details Date Type Department Care Team (Late st Contact Info) Description 08/28/2020 Telephone [facility] [address] [place] [phone] Debra Cooper Social History Tobacco Use Types [...] work regarding FMLA documentation. Please advise Contact- Julito(Son)-[phone] Debra Cooper 08/28/20 1446 * Telephone Encounter - Debra Cooper - 08/28/2020 2:45 PM EST Patients geetha Vila called again requesting a call back with questions regarding FMLA. Please advise Contact- [phone] Debra Cooper 08/29/20 1548 * Telephone Encounter - Meghan Jacobsen RN - 08/28/2020 2:45 PM EST Closing this encounter as there is a second encounter regarding the same thing. Meghan Jaocbsen RN 08/30/20 1034 documented in this encounter Plan of Treatment Not on file documented as of this encounter Visit Diagnoses Not on filedocumented in this encounter Additional Health Concerns Assessment Noted Time PHQ-9 Depression Total Score: 0 07/13/20 20 10:00 AM EDT documented as of this encounter Care Teams Public Relations Senior Associate Relationship Specialty Start Date End Date Dianna Boucher APRN-SULEIMAN [address], [place] [address] PCP - General Family Medicine 12/17/17 04/14/22 documented as of this encounter
--- OUTSIDE RECORDS SUMMARY | 2025-06-14 13:37 | XMS_ITS | Encounter Summary ---
Author [facility] [employer] tem Address [id number] [address] [place] [address] Care Team Providers Care Swatch Maker Name Role Phone Dianna Boucher INTEGRATION SPECIALIST-REPORTING LEAD Primary Care Provi angela Reason for Visit * Reason Onset Date Comments Med Refill 12/28/2018 Encounter Details Date Type Department Care Team (Late st Contact Info) Description 12/28/2018 Refill [facility] [address] [place] [phone] Mars Henson CMA Mixed hyperlipidemia; Essential [...] documented as of this encounter Care Teams Swatch Maker Relationship Specialty Start Date End Date Dianna Boucher, INTEGRATION SPECIALIST-REPORTING LEAD [address], [place] [address] PCP - General Family Medicine 12/17/17 04/14/22 documented as of this encounter
--- OUTSIDE RECORDS SUMMARY | 2025-06-14 13:37 | XMS_ITS | Encounter Summary ---
Author Organization [facility] [employer] [facility] tem Address [facility][id number] [address] [place] [address] Care Team Providers Care Attorney At Law Name Role Phone SanderDianna mendoza SENIOR SUPPORT ANALYST-FAGOT HEATER Primary Care Provi angela Encounter Details Date Type Department Care Team (Late st Contact Info) Description 10/01/2021 Telephone [facility] Family [facility] [address] [place] [address] [place] [address] Niki Zavala CMA Social History [...] documented as of this encounter Care Teams Attorney At Law Relationship Specialty Start Date End Date Dianna Boucher, SENIOR SUPPORT ANALYST-FAGOT HEATER [address], [place] [address] PCP - General Family Medicine 12/17/17 04/14/22 documented as of this encounter
--- OUTSIDE RECORDS SUMMARY | 2025-06-14 13:37 | XMS_ITS | Encounter Summary ---
Author Organization [facility] [employer] tem Address [id number] [address] [place] [address] Care Team Providers Care Clipper Machine Name Role Phone Dianna Boucher WIRELINE SUPERVISOR-PROGRAMMER ANALYST HEALTH IT Primary Care Provi angela Reason for Visit * Reason Comments Med Refill Encounter Details Date Type Department Care Team (Late st Contact Info) Description 09/02/2019 Refill [facility] [address] [place] [address] [place] [phone] Dianna Boucher, WIRELINE SUPERVISORPAM [facility] [address] [place] [address] B, [place] [address] Social History Tobacco Use Types [...] documented as of this encounter Care Teams Clipper Machine Relationship Specialty Start Date End Date Dianna Boucher, WIRELINE SUPERVISOR-PROGRAMMER ANALYST HEALTH IT [address], [place] [address] PCP - General Family Medicine 12/17/17 04/14/22 documented as of this encounter
--- OUTSIDE RECORDS SUMMARY | 2025-06-14 13:37 | XMS_ITS | Encounter Summary ---
Author Organization [facility] Sys tem Address [facility] [id number] [address] [place] [address] Care Team Providers Care Rn Wellness Name Role Phone Dianna Boucher APRN-COMPUTER ENGINEER Primary Care Provi angela Encounter Details Date Type Department Care Team (Late st Contact Info) Description 01/18/2021 Telephone [facility] [address] [place] [phone] Jane Virgen Social History Tobacco Use Types [...] as of this encounter Care Teams Rn Wellness Relationship Specialty Start Date End Date Dianna Boucher, HOANG [address], [place] [address] PCP - General Family Medicine 12/17/17 04/14/22 documented as of this encounter
--- OUTSIDE RECORDS SUMMARY | 2025-06-14 13:37 | XMS_ITS | Encounter Summary ---
Author Organization [facility] tem Address [facility]-[id number] [address] [place] [address] Care Team Providers Care Personnel Coordinator Name Role Phone Unavailable Primary Care Provider Unavailabl e Reason for Visit * Reason Comments Med Refill Encounter Details Date Type Department Care Team (Late st Contact Info) Description 04/25/2023 Refill [facility] [address] [place] [address] [place] [phone] Dianna Boucher, YARN WORKER-MANAGER [place] [address] [facility] [address], [place] [address] Mixed hyperlipidemia; Essential hypertension; Parkinson's disease ([facility]) Social History Tobacco Use Types Packs/Day Years [...] Essential hypertension Unspecified essential hypertension Parkinson's disease ([facility]) documented in this encounter Additional Health Concerns Assessment Noted Time PHQ-9 Depression Total Score: 5 07/16/ 21 10:41 AM EDT documented as of this encounter
--- OUTSIDE RECORDS SUMMARY | 2025-06-14 13:38 | XMS_ITS | Encounter Summary ---
Author Organization [facility] [employer] tem Address [facility] [place]-[id number] [address] [place] [address] Care Team Providers Care Classification Inspector Name Role Phone Dianna Boucher COUNSELOR EDUCATION PROFESSOR-MATHEMATICS LECTURER Primary Care Provi angela Reason for Visit * Reason Comments Med Refill Encounter Details Date Type Department Care Team (Late st Contact Info) Description 08/01/2020 Refill [facility] [address] [place] [address] [place] [phone] Dianna Boucher, COUNSELOR EDUCATION PROFESSORBOSTON SANATORI[facility] [address] [place] [address] B, [place] [address] Social History Tobacco Use Types [...] documented as of this encounter Care Teams Classification Inspector Relationship Specialty Start Date End Date Dinana Boucher APRN-CNP [address], [place] [address] PCP - General Family Medicine 12/17/17 04/14/22 documented as of this encounter
--- OUTSIDE RECORDS SUMMARY | 2025-06-14 13:38 | XMS_ITS | Encounter Summary ---
Author Organization [facility] [id number] tem Address [facility][id number] [address] [place] [address] Care Team Providers Care Chief Controller Name Role Phone Dianna Boucher Primary Care Provi angela Reason for Visit * Reason Onset Date Comments Med Refill 03/07/2021 Encounter Details Date Type Department Care Team (Late st Contact Info) Description 03/07/2021 Refill [facility] [address] [place] [address] [place] [phone] Miguel Lopez CMA Mixed hyperlipidemia; Essential hypertension; Parkinson's disease ([place] [...] documented as of this encounter Care Teams Chief Controller Relationship Specialty Start Date End Date Dianna Boucher APRN-CNP [address], [place] [address] PCP - General Family Medicine 12/17/17 04/14/22 documented as of this encounter
--- OUTSIDE RECORDS SUMMARY | 2025-06-14 13:38 | XMS_ITS | Encounter Summary ---
Author Organization [facility] [employer] Address [facility] [place][id number] [address] [place] [address] Care Team Providers Care Logging Crew Foreman Name Role Phone Dianna Boucher OFFICE COORDINATOR-DOT ETCHER Primary Care Provi angela Reason for Visit * Reason Comments Med Refill Encounter Details Date Type Department Care Team (Late st Contact Info) Description 02/07/2020 Refill [facility] [address] [place] [address] [place] [phone] Dianna Boucher, [facility] [address] [place] [address] B, [place] [address] Mixed hyperlipidemia; Essential hypertension; Parkinson's disease ([facility]) Social History Tobacco Use Types Packs/Day [...] Essential hypertension Unspecified essential hypertension Parkinson's disease ([facility]) documented in this encounter Additional Health Concerns Assessment Noted Time PHQ-9 Depression Total Score: 0 10/25/19 20 10:00 AM EST documented as of this encounter Care Teams Logging Crew Foreman Relationship Specialty Start Date End Date Dianna Boucher, CORDELL-DOT ETCHER [address], [place] [address] PCP - General Family Medicine 12/17/17 04/14/22 documented as of this encounter
[2025-06-14 14:28] LABS: Hematocrit 32.2 % (42.0-54.0); Hemoglobin 10.7 g/dL (14.0-18.0); Immature Granulocytes Abs Auto 0.01 10^3/uL (0.00-0.03); Immature Granulocytes Pct Auto 0.2 % (0.0-0.5); Lymphocytes Absolute Auto 0.9 10^3/uL (1.2-3.8); Mean Corpuscular HGB Conc 33.2 g/dL (29.9-35.2); Mean Corpuscular Hemoglobin 31.8 pg (25.9-34.0); Mean Corpuscular Volume 95.8 fL (80.0-94.0); Platelet Count 224 10^3/uL (150-450); Red Blood Count 3.36 10^6/uL (4.70-6.10); White Blood Count 4.8 10^3/uL (4.0-11.0)
[2025-06-14 14:59] LABS: Iron 72.0 ug/dL (65.0-175.0)
== END 2025-06-14 13:34 | disposition home or self-care (01) ==
LOC: LAB 13:34
PROVIDERS: PCP Nurse Practitioner Family; Visit Provider Nurse Practitioner Family
DX: D64.9 Anemia, unspecified (principal)
CPT/HCPCS: 36415; 83540; 85025

== ENCOUNTER 2025-06-25 12:45 | Outpatient (REF) | payer MEDICARE, OTHER, SELFPAY | END 2025-06-25 12:46 | disposition home or self-care (01) | LOC: LAB 12:45 | PROVIDERS: PCP Nurse Practitioner Family; Visit Provider Nurse Practitioner Family | DX: D64.9 Anemia, unspecified (principal) | CPT/HCPCS: G0328 ==